=== PATIENT | male | born 1940 | race Caucasian/White ===

== ENCOUNTER 2016-07-03 09:57 | Observation (INO) | payer MEDICARE, OTHER ==
[~2016-07-03] VITALS: Ht 175.3 cm; Wt 64.9 kg
[2016-07-03 10:54] LABS: HEMOGLOBIN 13.8 gm/dl (14.0-17.5); RED BLOOD COUNT 5.08 M/UL (4.20-5.50); WHITE BLOOD COUNT 7.9 K/UL (4.5-11.0)
[2016-07-03] MEDS ORDERED: IPRAT-ALBUT 0.5-3 ML INH (18:05)
[2016-07-03] MEDS ORDERED: COZAAR 50MG TAB50 MG PO (18:33)
[2016-07-03] MEDS ORDERED: CILOSTAZOL50 MG PO (18:33)
[2016-07-03] MEDS ORDERED: ISOSORBIDE DINI30 MG PO (18:34)
[2016-07-03] MEDS ORDERED: ZOLOFT50 MG PO (18:34)
[2016-07-03] MEDS ORDERED: BREO ELLIPTA 11 EACH INH (18:35)
[2016-07-03] MEDS ORDERED: SPIRIVA18 MCG INH (18:35)
[2016-07-03] MEDS ORDERED: ARICEPT10 MG PO (18:36)
[2016-07-03] MEDS ORDERED: NAMENDA10 MG PO (18:36)
[2016-07-03] MEDS ORDERED: XYZAL5 MG PO (18:37)
[2016-07-04 02:28] LABS: HEMOGLOBIN 13.1 gm/dl (14.0-17.5); RED BLOOD COUNT 4.86 M/UL (4.20-5.50); WHITE BLOOD COUNT 8.1 K/UL (4.5-11.0)
[2016-07-04 03:18] LABS: BUN/CREATININE RATIO 16 (0-10)
[2016-07-04] MEDS ORDERED: ASPIR 8181 MG PO (17:09)
== END 2016-07-04 20:12 | disposition home or self-care (01) ==
LOC: ER1 09:57 → ZEROF 13:15 → M/S 13:15
PROVIDERS: Emergency Medicine; ADMIT Internal Medicine
DX: R07.9 Chest pain, unspecified (principal); I25.10 Atherosclerotic heart disease of native coronary artery without angina pectoris; I10 Essential (primary) hypertension; E78.5 Hyperlipidemia, unspecified; I73.9 Peripheral vascular disease, unspecified; F03.90 Unspecified dementia, unspecified severity, without behavioral disturbance, psychotic disturbance, mood disturbance, and anxiety; D64.9 Anemia, unspecified; J44.9 Chronic obstructive pulmonary disease, unspecified; Z79.82 Long term (current) use of aspirin; Z79.899 Other long term (current) drug therapy; Z88.0 Allergy status to penicillin; Z91.041 Radiographic dye allergy status; Z95.5 Presence of coronary angioplasty implant and graft; Z87.891 Personal history of nicotine dependence
CPT/HCPCS: ECHO; 36415; 71010; 78452; 80048; 80053; 80061; 82550; 82553; 83735; 83874; 84484; 85025; 93005; 93017; 93306; 99285; A9502; G0378; J2785; Q0162